=== PATIENT | male | born 1940 | race Caucasian/White ===

== ENCOUNTER 2016-08-07 07:38 | Emergency (ER) | payer OTHER, BC ==
[2016-08-07 07:57] VITALS: BMI 22.9
[2016-08-07] MEDS ORDERED: ACETAMINOPHEN 325 MG TABLET (FP) PO ONE (08:09)
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
[2016-08-07] MEDS ORDERED: ACETAMINOPHEN 325 MG TABLET (FP) ONE (08:40)
[2016-08-07 08:57] LABS: BASOPHIL 0.6 % (0-2.0); EOSINOPHIL 1.4 % (0-4.5); MCHC 35.2 g/dl (32.0-35.9); MEAN CELL VOLUME 113.5 fl (80-96); MEAN PLT VOLUME 7.2 fl (7.5-11.1); NEUTROPHILS 71.4 % (42.8-82.8); PLATELET COUNT 201 K/MM3 (134-434); RDW 13.8 % (11.9-15.9); WHITE BLOOD COUNT 5.4 K/mm3 (4.0-10.0)
[2016-08-07 09:15] LABS: ALBUMIN 4.1 g/dl (3.4-5.0); ANION GAP 10 (8-16); BILIRUBIN,TOTAL 1.9 mg/dL (0.2-1.0); CALCIUM 8.7 mg/dL (8.5-10.1); CO2 27 mmol/L (21-32); CREATININE 0.7 mg/dL (0.7-1.3); GLUCOSE,RANDOM 136 mg/dL (74-106); SGOT/AST 33 U/L (15-37); SGPT/ALT 41 U/L (12-78)
[2016-08-07 09:16] LABS: ALK PHOS 99 U/L (45-117)
[2016-08-07] MEDS ORDERED: POTASSIUM CHLORIDE TABS 20 MEQ TABLET.ER (FP) PO ONE ×2 (09:30→10:03)
[2016-08-07] MEDS ORDERED: SODIUM CHLORIDE 500 ML IV STA (10:40)
[2016-08-07 12:24] VITALS: BP 150/89; PULSE 69; TEMP 98
--- NOTE | 2016-08-08 17:41 | EKG ---
Test Reason : Blood Pressure : / mmHG Vent. Rate : 065 BPM Atrial Rate : 065 BPM P-R Int : 146 ms QRS Dur : 092 ms QT Int : 406 ms P-R-T Axes : 062 040 027 degrees QTc Int : 422 ms NORMAL SINUS RHYTHM WITH SINUS ARRHYTHMIA NORMAL ECG WHEN COMPARED WITH ECG OF 05-NOV-2015 10:10, NO SIGNIFICANT CHANGE WAS FOUND Confirmed by MILAGROS GASTELUM MD ([id number]) on 08/08/2016 5:41:32 PM Referred By: Confirmed By:MILAGROS GASTELUM MD
== END 2016-08-07 13:15 | disposition home or self-care (01) ==
LOC: JER 07:38
PROC: 3E0337Z Introduction of Electrolytic and Water Balance Substance into Peripheral Vein, Percutaneous Approach (ICD-10-PCS; principal; 2016-08-07)
DX: R53.83 Other fatigue (principal); I25.10 Atherosclerotic heart disease of native coronary artery without angina pectoris; I10 Essential (primary) hypertension; Z95.5 Presence of coronary angioplasty implant and graft; E78.00 Pure hypercholesterolemia, unspecified; K21.9 Gastro-esophageal reflux disease without esophagitis; Z86.73 Personal history of transient ischemic attack (TIA), and cerebral infarction without residual deficits; Y04.2XXA Assault by strike against or bumped into by another person, initial encounter; Y93.89 Activity, other specified; Y92.89 Other specified places as the place of occurrence of the external cause; Y07.04 Female partner, perpetrator of maltreatment and neglect
CPT/HCPCS: 36415; 76705-TC; 80053; 85025; 93005; 93010; 96360; 99283-25

== ENCOUNTER 2016-10-25 09:31 | Day surgery (SDC) | payer OTHER, BC ==
[2016-10-24 11:52] VITALS: BMI 24.0
--- NOTE | 2016-10-25 10:18 | HP ---
History & Physical Update - History History: No Change - Physical Physical: No Change - Assessment Assessment: No Change - Plan Currently as noted:: open umbilical hernia repair to minimize risk of intra-abd bleeding
[2016-10-25] MEDS ORDERED: MIDAZOLAM HCL 2 MG/2 ML SINGLE DOSE VIAL ONE (10:36)
[2016-10-25] MEDS ORDERED: LIDOCAINE HCL/PF 2% SDV 5ML VIAL ONE (10:42)
[2016-10-25] MEDS ORDERED: ceFAZolin SODIUM 1 GM VIAL IVPB ONE (10:59)
[2016-10-25] MEDS ORDERED: BUPIVACAINE HCL/PF 0.5% (5MG/ML) 10 ML VIAL IJ ONE (11:02)
[2016-10-25] MEDS ORDERED: ROCURONIUM BROMIDE 50 MG/5 ML VIAL ONE ×2 (11:09→11:17)
[2016-10-25] MEDS ORDERED: PROPOFOL 20 ML ONE (11:15)
--- NOTE | 2016-10-25 11:55 | OP ---
Operative Note - Note: Operative Date: 10/25/16 Pre-Operative Diagnosis: umbilical hernia Operation: umbilical hernia repair with mesh Surgeon: Houston Bey Weights And Measures Sealer: Socorro Vicente Anesthesiologist/POWER DISTRIBUTOR: Mckenna Mckay Anesthesia: General Specimens Removed: hernia sac Estimated Blood Loss (mls): 10 Fluid Volume Replaced (mls): 900 Operative Report Dictated: Yes
--- NOTE | 2016-10-25 11:55 | SURG ---
Surgery Director Motion Picture Note Director Motion Picture: Socorro Vicente PA-C Date of Service: 10/25/16 Diagnosis: umbilical hernia Procedure: repair of umbilical hernia I was present for the entirety of the operative procedure. For further detail, please refer to operative report. Visit type - Case Type Case Type: Scheduled Admission - Emergency Emergency Visit: No - New patient This patient is new to me today: Yes Date on this admission: 10/25/16 - Critical Care Critical Care patient: No
[2016-10-25] MEDS ORDERED: ONDANSETRON 4 MG/2 ML VIAL IVPUSH PRN (11:56)
[2016-10-25] MEDS ORDERED: LACTATED RINGERS SOLUTION 1,000 ML IV SCH (12:00)
[2016-10-25] MEDS: oxyCODONE HCL 5 MG TABLET PO PRN ×2 (14:30→15:00)
[2016-10-25 15:15] VITALS: TEMP 98
--- NOTE | 2016-10-25 16:36 | OP ---
DATE OF OPERATION: 10/25/2016 PROCEDURE: Umbilical hernia repair with mesh. PREOPERATIVE DIAGNOSIS: Umbilical hernia with obstruction. POSTOPERATIVE DIAGNOSIS: Umbilical hernia with obstruction. SURGEON: Houston Bey M.D. CHIEF OPHTHALMIC TECHNICIAN: Wilver Smith ANESTHESIA: General endotracheal anesthesia. FINDINGS AND PROCEDURE: This is a 76-year-old male who presents with nonreducible umbilical hernia with about 4 cm in its widest diameter, so patient was advised elective hernia repair, and consent was obtained after discussing the risks, benefits, and alternatives to the procedure. Patient was brought to the operating room and placed in supine position. General endotracheal anesthesia was administered. The abdomen was prepped and draped in the usual sterile fashion. Using 0.5% Marcaine, local anesthesia was administered. A 4-cm vertical elliptical incision was made over the redundant umbilical skin using scalpel blade number 15. The hernia sac of the peritoneal cavity was entered and the incarcerated omentum was noted to have spontaneously reduced. The hernia sac was then excised down to the level of the fascia using Bovie cautery. The fascial defect was about 3 cm in its widest diameter. A 2.5 inch diameter Ventralex mesh was then deployed and anchored to the free side of the fascia with horizontal mattress Surgipro 0 suture. The defect was partially closed with 1 [id number] Prolene Surgipro 0 suture at the superior edge of the defect taking a small bite to the mesh. The inferior aspect of the mesh was also tacked to the posterior abdominal wall with 1 single Surgipro 0 stitch. After the deployment was deemed satisfactory, the wound was closed with interrupted bolus of 3-0 suture for the dermis and continuous subcuticular Biosyn 0 suture for the skin. The wound closure was reinforced with Steri- Strips and then covered with pressure dressing. Patient was successfully extubated and transferred to the post anesthesia care unit in satisfactory condition. Estimated blood loss was about 2 mL. Wound class clean. The patient received 2 g of Ancef prior to the start of the procedure. HOUSTON BEY M.D. ELIAZAR/[id number] MTDD
[2016-10-25 16:39] VITALS: BP 126/68; PULSE 60
--- NOTE | 2016-10-26 16:13 | PATH ---
Surgical Pathology Report Patient Name: TYREL SMALLWOOD [facility]. Rec. #: [id number] /Age/Gender: 1940 (Age: 76) / M Account: [id number] Location: [facility] SURGICAL Taken: 10/25/2016 Received: 10/25/2016 Reported: 10/26/2016 Physicians: Houston Bey M.D. Specimen(s) Received HERNIA SAC Clinical History Umbilical hernia Final Diagnosis HERNIA SAC, UMBILICAL HERNIA PAIR: FOCALLY MESOTHELIUM LINED BENIGN FIBROMEMBRANOUS AND FIBROADIPOSE TISSUE CONSISTENT WITH HERNIA SAC. Electronically Signed Charly Hodgson M.D. Gross Description Received in formalin labeled "hernia sac" is a 3.5 x 3.0 x 1.0 cm gao-merchant, irregular portion of fibromembranous tissue with attached fat. Jet Dyeing Machine Tender sections are submitted in one cassette. /10/25/2016 saudi/10/25/2016
== END 2016-10-25 15:25 | disposition home or self-care (01) ==
LOC: JASU-SURG 09:31
PROVIDERS: ATTEND Surgery
PROC: 0WUF0JZ Supplement Abdominal Wall with Synthetic Substitute, Open Approach (ICD-10-PCS; principal; 2016-10-25 11:00)
DX: K42.0 Umbilical hernia with obstruction, without gangrene (principal)
CPT/HCPCS: 88302-TC; 94760

== ENCOUNTER 2018-08-29 10:35 | Day surgery (SDC) | payer OTHER, BC ==
[2018-08-27 16:44] VITALS: BMI 25.1
--- NOTE | 2018-08-29 11:54 | HP ---
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: CVA (small old CVA (told of this by dr Liriano); without deficits) Cardiovascular: Yes: CAD, HTN, Hyperlipdemia Heme/Onc: Yes: Myeloproliferative Synd Musculoskeletal: Yes: Other (Gout) Rheumatology: Yes: Gout - Past Surgical History Past Surgical History: Yes: Hernia Repair, Prostatectomy, TURP - Smoking History Smoking history: Former smoker Have you smoked in the past 12 months: No Aproximately how many cigarettes per day: 0 If you are a former smoker, when did you quit?: 2009 - Alcohol/Substance Use Hx Alcohol Use: No History of Substance Use: reports: None - Social History ADL: Independent 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 History of Recent Travel: No Home Medications - Allergies Allergies/Adverse Reactions: Allergies Allergy/AdvReac Type Severity Reaction Status Date / Time No Known Drug Allergies Allergy Verified 08/29/18 11:14 - Home Medications Home Medications: Ambulatory Orders Allopurinol [Zyloprim -] 75 mg PO HS 03/04/14 Hydroxyurea 500 mg PO BID 03/04/14 Atorvastatin Ca [Lipitor] 10 mg PO HS 06/19/14 Folic Acid - 1 mg PO DAILY 06/19/14 Clopidogrel Bisulfate [Plavix -] 75 mg PO DAILY #0 01/20/15 Metoprolol Succinate [Toprol XL -] 50 mg PO BID tab.sr.24h 11/09/15 Fluocinonide 0.05% Cream [Lidex 0.05% Cream -] 1 applic TP DAILY #1 tube Fluocinonide 0.05% Oin [Lidex 0.05% Ointment -] 1 applic TP DAILY #1 oint...g. 01/04/18 Amlodipine Besylate [Norvasc -] 10 mg PO DAILY 08/29/18 Review of Systems - Review of Systems Constitutional: reports: No Symptoms Eyes: reports: No Symptoms HENT: reports: No Symptoms, Ringing in Ears Cardiovascular: reports: No Symptoms Respiratory: reports: No Symptoms Gastrointestinal: reports: No Symptoms Genitourinary: reports: No Symptoms Musculoskeletal: reports: No Symptoms Integumentary: reports: No Symptoms Neurological: reports: No Symptoms Endocrine: reports: No Symptoms Hematology/Lymphatic: reports: No Symptoms Psychiatric: reports: No Symptoms Physical Examination Vital Signs: Vital Signs Temperature 97.5 F L 08/29/18 11:12 Pulse Rate 70 08/29/18 11:12 Respiratory Rate 18 08/29/18 11:12 Blood Pressure 140/85 08/29/18 11:12 O2 Sat by Pulse Oximetry (%) 98 08/29/18 11:10 Constitutional: Yes: Well Nourished, No Distress, Calm Eyes: Yes: WNL, Conjunctiva Clear, EOM Intact HENT: Yes: WNL, Atraumatic, Normocephalic Neck: Yes: WNL, Supple, Trachea Midline Cardiovascular: Yes: WNL, Regular Rate and Rhythm Respiratory: Yes: WNL, Regular, CTA Bilaterally Gastrointestinal: Yes: WNL, Normal Bowel Sounds Musculoskeletal: Yes: WNL Extremities: Yes: WNL, Other (left toe ulcer) Edema: No Peripheral Pulses WNL: No Integumentary: Yes: WNL Neurological: Yes: WNL, Alert, Oriented ...Motor Strength: WNL Psychiatric: Yes: WNL Problem List - Problems (1) Ulcer of toe of left foot Assessment/Plan: for angiogram today Code(s): L97.529 - NON-PRESSURE CHRONIC ULCER OTH PRT LEFT FOOT W UNSP SEVERITY
[2018-08-29] MEDS ORDERED: ONDANSETRON 4 MG/2 ML VIAL IVPUSH PRN (12:07)
[2018-08-29] MEDS ORDERED: oxyCODONE HCL 5 MG TABLET PO PRN (12:07)
[2018-08-29] MEDS ORDERED: MIDAZOLAM HCL 2 MG/2 ML SINGLE DOSE VIAL ONE ×2 (12:13)
[2018-08-29] MEDS ORDERED: LACTATED RINGERS SOLUTION 1,000 ML IV SCH (12:15)
[2018-08-29] MEDS ORDERED: ceFAZolin SODIUM 1 GM VIAL IVPB ONE (12:22)
[2018-08-29] MEDS ORDERED: PROPOFOL 20 ML ONE (12:22)
[2018-08-29] MEDS ORDERED: HEPARIN NA (PORCINE) 5,000 UNITS/ML 1ML VIAL ONE (12:22)
[2018-08-29] MEDS ORDERED: LIDOCAINE HCL/PF 2% SDV 5ML VIAL ONE (12:22)
[2018-08-29] MEDS ORDERED: DEXAMETHASONE SOD PHOSPHATE 4 MG/1 ML VIAL ONE (12:22)
[2018-08-29] MEDS ORDERED: LIDOCAINE HCL 1%, 10 MG/ML (50 mL VIAL) IJ ONE (12:33)
--- NOTE | 2018-08-29 13:08 | OP ---
Operative Note - Note: Operative Date: 08/29/18 Pre-Operative Diagnosis: Left toe ulcer Operation: Aortogram, LLE angiogram Findings: SFA occlusion from origin Post-Operative Diagnosis: Same as Pre-op Surgeon: Melvin Davidson Anesthesia: Fractional Estimated Blood Loss (mls): 5 Operative Report Dictated: Yes
[2018-08-29 14:33] VITALS: BP 140/70; PULSE 59; TEMP 97.5
--- NOTE | 2018-08-29 16:45 | OP ---
DATE OF OPERATION: 08/29/2018 PREOPERATIVE DIAGNOSIS: Left toe ulcer. POSTOPERATIVE DIAGNOSIS: Left toe ulcer. PROCEDURE: Aortogram, left lower extremity angiogram. SURGEON: Melvin Menendez DO ANESTHESIA: Fractional. BLOOD LOSS: 5 mL. The patient is a 78-year-old male who has a left toe ulcer that has been nonhealing for over a year. In the past, 5 years ago, we know that he has an SFA occlusion. Today we were going to do an angiogram to see if we can open his SFA; if not, plan to see what other operations he needs. The patient was consented for the procedure, understanding all risks, benefits, alternatives. He was then taken to the operating room. Once in the operating room, he was placed on the operating table in supine manner. The area of the right and left groin were prepped and draped in a sterile surgical manner. We then injected 10 mL lidocaine 1% over the right common femoral artery. We then took our micropuncture needle and punctured the right common femoral artery. Micropuncture wire was inserted, micropuncture sheath was inserted. A 0.035 floppy guidewire was inserted, and a traditional 5-Maltese sheath was inserted. We then placed a 0.035 floppy guidewire up into the aorta followed by Omni Flush catheter. We then shot an aortogram via hand injection, showing that the aorta and the iliac arteries were without any disease. We then used a 0.035 floppy guidewire and went up and over to the left common femoral artery and our Omni Flush catheter followed. We then shot an angiogram of the left lower extremity, showing that the SFA is closed from its origin to flush occlusion and the SFA comes back in the distal Rony's canal. Popliteal artery is patent and patient has 2-vessel runoff into the foot, but mainly the PT. At this point, the best operation for the patient would be a retrograde stick from the popliteal. Will bring the patient back in 1 week to do that procedure. So for now, we went ahead and brought our Omni Flush catheter up and out. We then removed our sheath. Pressure was held in the right groin for 5 minutes. After there was no bleeding, the area was wet and dried and Dermabond was placed. Patient tolerated the procedure with no complications. Patient transferred to PACU in stable condition. MELVIN MENENDEZ DO NP/[id number]
== END 2018-08-29 16:40 | disposition home or self-care (01) ==
LOC: JASU-SURG 10:35
PROVIDERS: ATTEND Surgery Vascular Surgery
PROC: B41DYZZ Fluoroscopy of Aorta and Bilateral Lower Extremity Arteries using Other Contrast (ICD-10-PCS; principal; 2018-08-29 12:00)
DX: I70.245 Atherosclerosis of native arteries of left leg with ulceration of other part of foot (principal)
CPT/HCPCS: 75710-TC-FY; 76000-TC-FY; 94760; J1644

== ENCOUNTER 2018-09-05 09:31 | Day surgery (SDC) | payer OTHER, BC ==
[2018-09-04 16:02] VITALS: BMI 25.1
[2018-09-05] MEDS ORDERED: ONDANSETRON 4 MG/2 ML VIAL IVPUSH PRN (10:23)
[2018-09-05] MEDS ORDERED: oxyCODONE HCL 5 MG TABLET PO PRN (10:23)
[2018-09-05] MEDS ORDERED: SODIUM CHLORIDE 1,000 ML IV SCH (10:30)
[2018-09-05] MEDS ORDERED: MIDAZOLAM HCL 2 MG/2 ML SINGLE DOSE VIAL ONE (10:52)
[2018-09-05] MEDS ORDERED: LIDOCAINE HCL/PF 2% SDV 5ML VIAL ONE (10:59)
[2018-09-05] MEDS ORDERED: LIDOCAINE HCL 1%, 10 MG/ML (20ML VIAL) ONE (11:01)
[2018-09-05] MEDS ORDERED: HEPARIN NA (PORCINE) 5,000 UNITS/ML 1ML VIAL ONE (11:01)
[2018-09-05] MEDS ORDERED: ceFAZolin SODIUM 1 GM VIAL IVPB ONE (11:08)
[2018-09-05] MEDS ORDERED: LIDOCAINE HCL 1%, 10 MG/ML (50 mL VIAL) IJ ONE (11:21)
--- NOTE | 2018-09-05 12:39 | OP ---
Operative Note - Note: Operative Date: 09/05/18 Pre-Operative Diagnosis: LLE toe ulcer Operation: Left iliac angiogram, LLE angiogram, SFA atherectomy with DCB angioplasty via retrograde popliteal approach Findings: sfa occlusion for 200mm Post-Operative Diagnosis: Same as Pre-op Surgeon: Melvin Davidson Anesthesia: Fractional Estimated Blood Loss (mls): 50 Operative Report Dictated: Yes
[2018-09-05] MEDS ORDERED: CLOPIDOGREL BISULFATE 75 MG TABLET (FP) PO ONE ×2 (12:40→13:00)
--- NOTE | 2018-09-05 12:40 | HP ---
Admitting History and Physical - Admission Chief Complaint: left lower extremity toe ulcer. 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: CVA (small old CVA (told of this by dr Liriano); without deficits) Cardiovascular: Yes: CAD, HTN, Hyperlipdemia Heme/Onc: Yes: Myeloproliferative Synd Musculoskeletal: Yes: Other (Gout) Rheumatology: Yes: Gout - Past Surgical History Past Surgical History: Yes: Hernia Repair, Prostatectomy, TURP - Smoking History Smoking history: Former smoker Have you smoked in the past 12 months: No Aproximately how many cigarettes per day: 0 If you are a former smoker, when did you quit?: 2009 - Alcohol/Substance Use Hx Alcohol Use: No History of Substance Use: reports: None - Social History ADL: Independent 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 History of Recent Travel: No Home Medications - Allergies Allergies/Adverse Reactions: Allergies Allergy/AdvReac Type Severity Reaction Status Date / Time No Known Drug Allergies Allergy Verified 09/05/18 10:22 - Home Medications Home Medications: Ambulatory Orders Allopurinol [Zyloprim -] 37.5 mg PO DAILY 03/04/14 Hydroxyurea 500 mg PO BID 03/04/14 Atorvastatin Ca [Lipitor] 10 mg PO HS 06/19/14 Folic Acid - 1 mg PO DAILY 06/19/14 Clopidogrel Bisulfate [Plavix -] 75 mg PO DAILY #0 01/20/15 Metoprolol Succinate [Toprol XL -] 50 mg PO BID tab.sr.24h 11/09/15 Amlodipine Besylate [Norvasc -] 10 mg PO DAILY 08/29/18 Review of Systems - Review of Systems Constitutional: reports: No Symptoms Eyes: reports: No Symptoms HENT: reports: No Symptoms Neck: reports: No Symptoms Cardiovascular: reports: No Symptoms Respiratory: reports: No Symptoms Gastrointestinal: reports: No Symptoms Genitourinary: reports: No Symptoms Musculoskeletal: reports: No Symptoms Integumentary: reports: No Symptoms Neurological: reports: No Symptoms Endocrine: reports: No Symptoms Hematology/Lymphatic: reports: No Symptoms Psychiatric: reports: No Symptoms Physical Examination Vital Signs: Vital Signs Temperature 97.9 F 09/05/18 09:59 Pulse Rate 66 09/05/18 09:59 Respiratory Rate 18 09/05/18 09:59 Blood Pressure 138/54 L 09/05/18 09:59 O2 Sat by Pulse Oximetry (%) 98 09/05/18 10:01 Constitutional: Yes: Well Nourished, No Distress, Calm Eyes: Yes: WNL, Conjunctiva Clear, EOM Intact HENT: Yes: WNL, Atraumatic, Normocephalic Neck: Yes: WNL, Supple, Trachea Midline Cardiovascular: Yes: WNL, Regular Rate and Rhythm Respiratory: Yes: WNL, Regular, CTA Bilaterally Gastrointestinal: Yes: WNL, Normal Bowel Sounds Musculoskeletal: Yes: WNL Extremities: Yes: WNL, Other (LLE toe ulcer) Edema: No Peripheral Pulses WNL: No Integumentary: Yes: WNL Neurological: Yes: WNL, Alert, Oriented ...Motor Strength: WNL Psychiatric: Yes: WNL Problem List - Problems (1) Ulcer of toe of left foot Assessment/Plan: For angiogram today Code(s): L97.529 - NON-PRESSURE CHRONIC ULCER OTH PRT LEFT FOOT W UNSP SEVERITY
[2018-09-05] MEDS ORDERED: oxyCODONE HCL 5 MG TABLET ONE (14:44)
[2018-09-05 17:14] VITALS: BP 120/68; PULSE 50; TEMP 97.8
--- NOTE | 2018-09-10 13:44 | OP ---
DATE OF OPERATION: 09/05/2018 PREOPERATIVE DIAGNOSIS: Claudication of both legs. POSTOPERATIVE DIAGNOSIS: Claudication of both legs. PROCEDURE: Left iliac angiogram, left lower extremity angiogram, superficial femoral artery drug-coated balloon angioplasty via retrograde popliteal artery approach. ANESTHESIA: Fractional. BLOOD LOSS: 50 mL. The patient is a 78-year-old male that has left lower extremity claudication. Preoperative ultrasound shows SFA occlusion. He had an angiogram performed last week to plan out his procedure and it showed that the SFA is occluded from its origin and the distal SFA comes back and the popliteal artery is open and patient has 2-vessel runoff into the foot. It was decided that he would come in through ambulatory surgery and we would do a retrograde popliteal approach. Patient was consented for the procedure, understanding all risks, benefits, alternatives. He was then taken to the operating room. Once in the operating room, he was laid down in a prone manner and the area of the popliteal fossa was prepped and draped in a sterile surgical manner. Under ultrasound guidance, we were able to visualize the left popliteal artery above the knee, and we were able to inject 10 mL of lidocaine 1% there under ultrasound guidance with the use of a micropuncture needle and punctured the left popliteal artery. Micropuncture wire was inserted, micropuncture sheath was inserted, and a traditional short 6-Dominican sheath was inserted. Then 5000 units of IV heparin was administered to patient. We then used a 0.035 stiff guidewire and we went up and we were able to cross the occlusion using a Quick-Cross catheter and placed a wire into the nez perce left iliac artery. We then went ahead and shot a left iliac angiogram via our Quick-Cross catheter via hand injection, and it showed that we were intraluminal and the SFA was occluded. We then went ahead and used a 5 x 220 balloon and performed angioplasty of the entire SFA. Completion angiogram now showed that the SFA was patent and there was good runoff into the foot. We then went ahead and used a 5 x 150 and a 5 x 100 balloon and performed drug-coated balloon angioplasty of the SFA. Once we performed drug-coated balloon angioplasty of the left SFA, we shot another completion angiogram using our Quick-Cross catheter from the left iliac artery and the left iliac artery was patent, the SFA was patent, the popliteal artery was patent, and patient had good runoff into the foot. The main runoff was the posterior tibial artery. The leg was nice and warm. There was good palpable PT pulse at this point. There was no more intervention needed. We removed our 6-Dominican sheath from the popliteal fossa and we held pressure for 5 minutes. After there was no more bleeding, the area was wet and dried and Dermabond was placed. Patient tolerated this procedure with no complications. Patient transferred to PACU in stable condition, where there was a palpable left posterior tibial pulse. Total blood loss 50 mL. JENNY MENENDEZ DO [id number]
== END 2018-09-05 17:15 | disposition home or self-care (01) ==
LOC: JASU-SURG 09:31
PROVIDERS: ATTEND Surgery Vascular Surgery
PROC: 047L3Z1 Dilation of Left Femoral Artery using Drug-Coated Balloon, Percutaneous Approach (ICD-10-PCS; principal; 2018-09-05 11:00)
DX: I70.245 Atherosclerosis of native arteries of left leg with ulceration of other part of foot (principal); I10 Essential (primary) hypertension; K21.9 Gastro-esophageal reflux disease without esophagitis; I20.9 Angina pectoris, unspecified
CPT/HCPCS: 37224; C2623; 76000-TC-FY; 94760; J1644